=== PATIENT | female | born 1980 | race Two or more races ===

== ENCOUNTER 2020-12-28 04:27 | Inpatient (IN) | payer OTHER ==
[~2020-12-28] VITALS: Ht 165.1 cm; Wt 4.1 kg
[2020-12-28] MEDS ORDERED: DIALYVITE 800-1 EACH PO (07:52)
[2020-12-28] MEDS ORDERED: PRENATAL TABLE1 EAC1 PO (07:52)
[2020-12-28] MEDS ORDERED: METHYLDOPA250 MG PO (07:53)
[2020-12-28] MEDS ORDERED: OCUVITE EYE HE1 EACH PO (07:54)
[2020-12-28] MEDS ORDERED: IRON325 MG PO (07:54)
== END 2020-12-30 13:43 | disposition home or self-care (01) | DRG 786 ==
LOC: LDR 04:27 → OB/GYN 11:30 → SURG-SUITE 13:57
PROVIDERS: ADMIT Specialist; ATTEND Specialist
PROC: 4A1HXFZ Monitoring of Products of Conception, Cardiac Rhythm, External Approach (ICD-10-PCS; 2020-12-28)
PROC: 10D00Z1 Extraction of Products of Conception, Low, Open Approach (ICD-10-PCS; principal; 2020-12-28 11:00)
DX: O65.5 Obstructed labor due to abnormality of maternal pelvic organs (principal); O60.23X0 Term delivery with preterm labor, third trimester, not applicable or unspecified; O34.13 Maternal care for benign tumor of corpus uteri, third trimester; D25.1 Intramural leiomyoma of uterus; D25.2 Subserosal leiomyoma of uterus; O64.8XX0 Obstructed labor due to other malposition and malpresentation, not applicable or unspecified; Z3A.37 37 weeks gestation of pregnancy; Z37.0 Single live birth; Z20.822 Contact with and (suspected) exposure to COVID-19